=== PATIENT | male | born 1985 | race Caucasian/White ===

== ENCOUNTER 2018-10-11 10:52 | Emergency (ER) | payer SELFPAY ==
[~2018-10-11 10:52] MED LIST: LOR5/325 PO
--- NOTE | 2018-10-11 11:04 | ER Report ---
History and Physical Time Seen By MD: 11:04 Hx. of Stated Complaint: Pt. is dizzy and having right sided facial numbness and tingling. Onset 30 minutes prior to arrival. Pt. states he sneezed twice, and then symptoms started. Bilateral arm strength equal, no facial droop. Pt. had recent right menisus repair on 09/12, non-weightbearing on right leg. HPI/ROS CHIEF COMPLAINT: Numbness to right side HISTORY OF PRESENT ILLNESS: 31-year-old male patient presents to emergency room with complaint of numbness to the right side. Patient states this been going on for approximately 30 minutes time of arrival. Patient states that he was at work, working as a electronic bench technician at [employer], when the symptoms started suddenly. Patient states that he had meniscus repair in the right knee on September 12. Patient denies any fevers or chills. Patient states that he did become nauseated once he arrived here to the emergency room. Patient states he has not taken any medication for this. He denies any fevers, chills, diarrhea. REVIEW OF SYSTEMS: Respiratory: No cough, no dyspnea. Cardiovascular: No chest pain, no palpitations. Gastrointestinal: As noted above Musculoskeletal: No back pain. Allergies: Coded Allergies: No Known Drug Allergies (Verified , 10/11/18) Home Meds Active Scripts Lorazepam (ATIVAN) 0.5 Mg Tablet, 0.5 MG PO Q4-6H PRN for ANXIETY, #12 TAB Prov:MANUEL SMITH JAMIN 10/11/18 Reported Medications Trazodone Hcl (TRAZODONE HCL) 50 Mg Tablet 10/11/18 Sertraline Hcl (SERTRALINE HCL) 50 Mg Tablet 10/11/18 Hydroxyzine Pamoate (HYDROXYZINE PAMOATE) 25 Mg Capsule 10/11/18 Acetaminophen/Hydrocodone (Lortab 5/325 Mg) 5 Mg/325 Mg Tab, 1 - 2 EA PO Q4-6H, 0 Refills 08/02/08 [None] No Conflict Check, 0 Refills 08/02/08 Past Medical/Surgical History Patient has past medical history of depression, anxiety. Patient has surgical history of recent meniscus surgery on the right knee. Reviewed Nurses Notes: Yes Constitutional Vital Sign - Last 24 Hours 10/11/18 10/11/18 10/11/18 10/11/18 10:53 10:53 10:57 11:00 Temp 98.3 Pulse 64 77 Resp 16 0 B/P (MAP) 116/68 (84) 116/68 104/73 (83) Pulse Ox 93 89 O2 Delivery Room Air 10/11/18 10/11/18 10/11/18 10/11/18 11:02 11:07 11:12 11:17 Pulse 59 67 62 66 Resp 15 22 13 7 10/11/18 10/11/18 10/11/18 10/11/18 11:22 11:42 11:47 11:52 Pulse 60 ??? 85 66 Resp 13 36 17 Pulse Ox 96 97 98 10/11/18 10/11/18 10/11/18 10/11/18 11:57 12:00 12:02 12:07 Pulse 74 63 67 Resp 14 15 17 B/P (MAP) 95/81 (86) Pulse Ox 97 96 92 10/11/18 10/11/18 10/11/18 10/11/18 12:12 12:17 12:22 12:27 Pulse 70 66 67 63 Resp 9 19 13 16 Pulse Ox 98 97 95 98 10/11/18 10/11/18 10/11/18 10/11/18 12:30 12:32 12:37 12:42 Pulse 64 69 74 Resp 10 13 11 B/P (MAP) 108/70 (83) Pulse Ox 100 100 98 10/11/18 10/11/18 10/11/18 10/11/18 12:47 12:52 12:57 13:00 Pulse ??? 71 74 Resp 16 12 B/P (MAP) 105/68 (80) 104/66 (79) Pulse Ox 99 100 10/11/18 10/11/18 10/11/18 10/11/18 13:02 13:07 13:12 13:17 Pulse 76 71 68 70 Resp 14 10 16 12 Pulse Ox 100 100 100 92 10/11/18 10/11/18 10/11/18 10/11/18 13:22 13:27 13:30 13:32 Pulse 82 74 80 Resp 16 12 9 B/P (MAP) 96/63 (74) Pulse Ox 99 98 90 10/11/18 10/11/18 10/11/18 10/11/18 13:37 13:42 13:47 13:52 Pulse 80 71 66 64 Resp 13 14 18 29 Pulse Ox 100 100 99 99 10/11/18 10/11/18 10/11/18 10/11/18 13:57 14:00 14:02 14:07 Pulse 75 76 82 Resp 15 17 18 B/P (MAP) 101/68 (79) Pulse Ox 98 99 98 10/11/18 10/11/18 10/11/18 10/11/18 14:12 14:17 14:22 14:27 Pulse 75 78 83 87 Resp 19 17 12 12 Pulse Ox 99 99 99 100 10/11/18 10/11/18 10/11/18 14:30 14:32 14:37 Pulse 78 76 Resp 19 9 B/P (MAP) 108/72 (84) Pulse Ox 98 97 Physical Exam General Appearance: The patient is alert, has no immediate need for airway protection and no current signs of toxicity. Patient is diaphoretic. Respiratory: Chest is non tender, lungs are clear to auscultation. Cardiac: regular rate and rhythm Gastrointestinal: Abdomen is soft and non tender, no masses, bowel sounds normal. Musculoskeletal: Neck: Neck is supple and non tender. Patient has sharp sensation. Extremities have full range of motion and are non tender. Skin: No rashes or lesions. DIFFERENTIAL DIAGNOSIS: After history and physical exam differential diagnosis was considered for blood clot, anxiety, stroke, CT. Medical Decision Making Data Points Result Diagram: 10/11/18 1059 10/11/18 1059 Laboratory Hematology Test 10/11/18 10:59 10/11/18 12:46 10/11/18 14:17 Red Blood Count 5.35 M/uL (4.00-5.60) Mean Corpuscular Volume 95.0 fL (80.0-96.0) Mean Corpuscular Hemoglobin 32.7 pg (26.0-33.0) Mean Corpuscular Hemoglobin Concent 34.5 g/dL (32.0-36.0) Red Cell Distribution Width 12.9 % (11.5-14.5) Mean Platelet Volume 7.2 fL (7.2-11.1) Neutrophils (%) (Auto) 63.9 % (39.4-72.5) Lymphocytes (%) (Auto) 27.5 % (17.6-49.6) Monocytes (%) (Auto) 7.8 % (4.1-12.4) Eosinophils (%) (Auto) 0.2 % (0.4-6.7) Basophils (%) (Auto) 0.6 % (0.3-1.4) Nucleated RBC Relative Count (auto) 0.0 /100WBC Neutrophils # (Auto) 3.9 K/uL (2.0-7.4) Lymphocytes # (Auto) 1.7 K/uL (1.3-3.6) Monocytes # (Auto) 0.5 K/uL (0.3-1.0) Eosinophils # (Auto) 0.0 K/uL (0.0-0.5) Basophils # (Auto) 0.0 K/uL (0.0-0.1) Nucleated RBC Absolute Count (auto) 0.00 K/uL D-Dimer Quantitative (PE/DVT) 0.68 ug/ml (0-0.50) Sodium Level 137 mmol/L (137-145) Potassium Level 4.1 mmol/L (3.5-5.0) Chloride Level 102 mmol/L (98-107) Carbon Dioxide Level 25 mmol/L (22-30) Blood Urea Nitrogen 18 mg/dl (9-21) Creatinine 1.00 mg/dl (0.66-1.25) Glomerular Filtration Rate Calc > 60.0 Random Glucose 107 mg/dl (75-110) Calcium Level 9.5 mg/dl (8.4-10.2) Total Bilirubin 1.0 mg/dl (0.2-1.3) Aspartate Amino Transf (AST/SGOT) 22 U/L (0-35) Alanine Aminotransferase (ALT/SGPT) 23 U/L (0-56) Alkaline Phosphatase 64 U/L (0-126) Total Protein 8.0 g/dl (6.3-8.2) Albumin 4.8 g/dl (3.5-5.0) Urine Color Yellow Urine Clarity Clear Urine pH 7.0 pH (4.8-9.5) Urine Specific Brick >1.060 Urine Protein Negative mg/dL (NEGATIVE) Urine Glucose (UA) Negative mg/dL (NEGATIVE) Urine Ketones Trace mg/dL (NEGATIVE) Urine Blood Negative (NEGATIVE) Urine Nitrite Negative (NEGATIVE) Urine Bilirubin Negative (NEGATIVE) Urine Urobilinogen Negative mg/dL (0.2-1.9) Urine Leukocyte Esterase Negative (NEGATIVE) Urine RBC 1 /HPF (0-2/HPF) Urine WBC <1 /HPF (0-5/HPF) Urine Squamous Epithelial Cells None /LPF (</=FEW) Urine Bacteria Negative /HPF (NONE-FEW) Urine Mucus None /HPF (NONE-FEW) Urine Opiates Screen Negative Urine Barbiturates Screen Negative Ur Tricyclic Antidepressants Screen Negative Urine Phencyclidine Screen Negative Urine Amphetamines Screen Negative Urine Benzodiazepines Screen Negative Urine Cocaine Screen Negative Urine Cannabinoids Screen Negative Troponin I < 0.012 ng/ml Chemistry Test 10/11/18 10:59 10/11/18 12:46 10/11/18 14:17 White Blood Count 6.1 k/uL (4.5-11.0) Red Blood Count 5.35 M/uL (4.00-5.60) Hemoglobin 17.5 g/dL (14.0-18.0) Hematocrit 50.9 % (42.0-52.0) Mean Corpuscular Volume 95.0 fL (80.0-96.0) Mean Corpuscular Hemoglobin 32.7 pg (26.0-33.0) Mean Corpuscular Hemoglobin Concent 34.5 g/dL (32.0-36.0) Red Cell Distribution Width 12.9 % (11.5-14.5) Platelet Count 263 K/uL (150-450) Mean Platelet Volume 7.2 fL (7.2-11.1) Neutrophils (%) (Auto) 63.9 % (39.4-72.5) Lymphocytes (%) (Auto) 27.5 % (17.6-49.6) Monocytes (%) (Auto) 7.8 % (4.1-12.4) Eosinophils (%) (Auto) 0.2 % (0.4-6.7) Basophils (%) (Auto) 0.6 % (0.3-1.4) Nucleated RBC Relative Count (auto) 0.0 /100WBC Neutrophils # (Auto) 3.9 K/uL (2.0-7.4) Lymphocytes # (Auto) 1.7 K/uL (1.3-3.6) Monocytes # (Auto) 0.5 K/uL (0.3-1.0) Eosinophils # (Auto) 0.0 K/uL (0.0-0.5) Basophils # (Auto) 0.0 K/uL (0.0-0.1) Nucleated RBC Absolute Count (auto) 0.00 K/uL D-Dimer Quantitative (PE/DVT) 0.68 ug/ml (0-0.50) Glomerular Filtration Rate Calc > 60.0 Calcium Level 9.5 mg/dl (8.4-10.2) Total Bilirubin 1.0 mg/dl (0.2-1.3) Aspartate Amino Transf (AST/SGOT) 22 U/L (0-35) Alanine Aminotransferase (ALT/SGPT) 23 U/L (0-56) Alkaline Phosphatase 64 U/L (0-126) Total Protein 8.0 g/dl (6.3-8.2) Albumin 4.8 g/dl (3.5-5.0) Urine Color Yellow Urine Clarity Clear Urine pH 7.0 pH (4.8-9.5) Urine Specific Brick >1.060 Urine Protein Negative mg/dL (NEGATIVE) Urine Glucose (UA) Negative mg/dL (NEGATIVE) Urine Ketones Trace mg/dL (NEGATIVE) Urine Blood Negative (NEGATIVE) Urine Nitrite Negative (NEGATIVE) Urine Bilirubin Negative (NEGATIVE) Urine Urobilinogen Negative mg/dL (0.2-1.9) Urine Leukocyte Esterase Negative (NEGATIVE) Urine RBC 1 /HPF (0-2/HPF) Urine WBC <1 /HPF (0-5/HPF) Urine Squamous Epithelial Cells None /LPF (</=FEW) Urine Bacteria Negative /HPF (NONE-FEW) Urine Mucus None /HPF (NONE-FEW) Urine Opiates Screen Negative Urine Barbiturates Screen Negative Ur Tricyclic Antidepressants Screen Negative Urine Phencyclidine Screen Negative Urine Amphetamines Screen Negative Urine Benzodiazepines Screen Negative Urine Cocaine Screen Negative Urine Cannabinoids Screen Negative Troponin I < 0.012 ng/ml Coagulation Test 10/11/18 10:59 D-Dimer Quantitative (PE/DVT) 0.68 ug/ml Toxicology Test 10/11/18 12:46 Urine Opiates Screen Negative Urine Barbiturates Screen Negative Ur Tricyclic Antidepressants Screen Negative Urine Phencyclidine Screen Negative Urine Amphetamines Screen Negative Urine Benzodiazepines Screen Negative Urine Cocaine Screen Negative Urine Cannabinoids Screen Negative Urinalysis Test 10/11/18 12:46 Urine Color Yellow Urine Clarity Clear Urine pH 7.0 pH (4.8-9.5) Urine Specific Brick >1.060 Urine Protein Negative mg/dL (NEGATIVE) Urine Glucose (UA) Negative mg/dL (NEGATIVE) Urine Ketones Trace mg/dL (NEGATIVE) Urine Blood Negative (NEGATIVE) Urine Nitrite Negative (NEGATIVE) Urine Bilirubin Negative (NEGATIVE) Urine Urobilinogen Negative mg/dL (0.2-1.9) Urine Leukocyte Esterase Negative (NEGATIVE) Urine RBC 1 /HPF (0-2/HPF) Urine WBC <1 /HPF (0-5/HPF) Urine Squamous Epithelial Cells None /LPF (</=FEW) Urine Bacteria Negative /HPF (NONE-FEW) Urine Mucus None /HPF (NONE-FEW) EKG/Imaging Imaging EXAMINATION: CTA Chest With Contrast 10/11/2018 11:36 AM HISTORY: elevate d-dimer TECHNIQUE: Pulmonary embolus protocol - Thin-slice axial imaging of the chest was performed during maximal pulmonary arterial opacification with intravenous nonionic iodinated contrast. 3D slab MIPs and 2D reconstructions in the coronal and sagittal planes were performed. [employer] images have been stored on PACS. Contrast: 75 mL of IV Isovue 370. One of the following dose optimization techniques was utilized in the performance of this exam: Automated exposure control; adjustment of the mA and/or kV according to the patient's size; or use of an iterative reconstruction technique. Specific details can be referenced in the facility's radiology CT exam operational policy. COMPARISON STUDIES: Separate CT head and cervical spine today. Chest x-ray 05/07/2003. FINDINGS: Angiographic Findings: Pulmonary arteries: There are no filling defects in the main, right, left, lobar, segmental or visualized sub-segmental branches of the pulmonary arterial system Other vasculature: negative Additional non-angiographic findings: Lungs / pleura: negative Mediastinum / lydia: negative Heart / pericardium: negative Musculoskeletal / Body wall: Stable mild levoscoliotic curvature. Lymph node assessment: negative Lower neck: negative Upper abdomen: negative IMPRESSION: Negative CTA evaluation for PE. No significant acute finding. Report Dictated By: Dylan Garcia MD at 10/11/2018 12:14 PM Report E-Signed By: Dylan Garcia MD at 10/11/2018 12:20 PM EXAMINATION: CT Cervical Spine Without Contrast 10/11/2018 11:33 AM HISTORY: numbness COMPARISON STUDIES: Separate CT head and CTA chest for PE today. TECHNIQUE: Axial images were obtained from the skull base through the upper thoracic spine without IV contrast administration. Coronal and sagittal reformatted images were obtained from the axial source data. One of the following dose optimization techniques was utilized in the performance of this exam: Automated exposure control; adjustment of the mA and/or kV according to the patient's size; or use of an iterative reconstruction technique. Specific details can be referenced in the facility's radiology CT exam operational policy. FINDINGS: Pre-vertebral soft tissues: negative Alignment: negative Vertebral bodies: negative Posterior elements: negative Disc Spaces: Mild disc loss and spurring from C3-4 downward. Visualized soft tissues anterior neck: negative Visualized lung / mediastinum: negative IMPRESSION: No acute bony injury of the cervical spine. Mild multilevel cervical spondylosis. Report Dictated By: Dylan Garcia MD at 10/11/2018 12:11 PM Report E-Signed By: Dylan Garcia MD at 10/11/2018 12:20 PM EXAMINATION: CT Head Without Contrast 10/11/2018 11:11 AM HISTORY: numbness ot the right side TECHNIQUE: Contiguous axial images were obtained from the skull base to the vertex without intravenous contrast. One of the following dose optimization techniques was utilized in the performan ce of this exam: Automated exposure control; adjustment of the mA and/or kV according to the patient's size; or use of an iterative reconstruction technique. Specific details can be referenced in the facility's radiology CT exam operational policy. COMPARISON STUDIES: Separate CT cervical spine and CTA chest for PE today. FINDINGS: Ventricles / sulci / fissures: negative Masses / hemorrhage / midline shift: negative White matter: negative Carbone-white differentiation: negative Extra-axial spaces: negative Dural venous sinuses / arterial structures: negative Skull base / calvarium: negative Visualized mastoid air cells / paranasal sinuses: negative IMPRESSION: Normal head CT. No evidence of mass, acute ischemia or hemorrhage. Report Dictated By: Dylan Garcia MD at 10/11/2018 12:09 PM Report E-Signed By: Dylan Garcia MD at 10/11/2018 12:20 PM ED Course/Re-evaluation ED Course Patient was admitted to an exam room, history and physical were obtained. Differential diagnoses were considered. On examination patient was diaphoretic, he was pale, he was shaking. Patient had normal vital signs, lungs are clear, heart was regular, abdomen was soft and nontender. With the numbness to the right side a CT scan of the head was done. The results were negative. On my initial evaluation patient had decreased sensation to light touch and was able to feel pinprick. Patient was complaining of significant amount of pain to the neck and a CT scan of the neck was done. Pulses results were also negative. While he was there we get the results on his d-dimer which was elevated. We did go ahead and do the CT pulmonary angiogram. That was also negative. Patient got back and is still very anxious. We did give him 0.5 mg of Ativan. He states he felt significantly better. States the numbness and tingling had gone away completely. Patient states he is currently taking medication for anxiety, Zoloft and hydroxyzine. Patient had lab work which was also unremarkable except for the elevated d-dimer. Initial troponin was negative. EKG showed a normal sinus rhythm with a ventricular rate of 65 bpm. We did offer to monitor him for 3 hours from the time he arrived. A repeat troponin was done at that time. He was also negative. Patient had equal strength and all extremities. He had no numbness and tingling on discharge. With the negative radiological studies and negative laboratory studies we'll go ahead and discharge him home. I feel that e specially appropriate as he has improvement in his symptoms. We will go ahead and prescribe him Ativan. He is follow-up with his primary care provider in the next week. Patient verbalized understanding and agreement with plan. Decision to Disposition Date: Oct 11, 2018 Decision to Disposition Time: 14:59 Depart Departure Latest Vital Signs Vital Signs Date Time Temp Pulse Resp B/P (MAP) Pulse Ox O2 Delivery O2 Flow Rate FiO2 10/11/18 14:37 76 9 97 10/11/18 14:30 108/72 (84) 10/11/18 10:53 98.3 Room Air Impression: Primary Impression: Anxiety Condition: Improved Disposition: HOME OR SELF-CARE New Scripts Lorazepam (ATIVAN) 0.5 Mg Tablet 0.5 MG PO Q4-6H PRN for ANXIETY, #12 TAB Prov: MANUEL SMITH 10/11/18 Patient Instructions: Anxiety (ED) Additional Instructions: Get plenty of rest. Increase fluid intake. Make sure that you are sitting down at different times when you are at work. Continue with your normal medications. Return to the ER if you are having any recurrence of symptoms. Follow up with a primary care provider in the next 1-2 weeks. MANUEL SMITH Oct 11, 2018 11:04
[2018-10-11] MEDS ORDERED: TRAZ50TA34 (11:07)
[2018-10-11] MEDS ORDERED: SERT-184 (11:07)
[2018-10-11] MEDS ORDERED: HYDR25CA13 (11:07)
[2018-10-11] MEDS ORDERED: NS(*) 0.9% 1000 ML BAG 1,000 ML IV ONE (11:11)
[2018-10-11] MEDS ORDERED: ONDANSETRON 4 MG/2 ML VIAL IVP ONE (11:15)
[2018-10-11] MEDS ORDERED: ASPIRIN 81 MG CHEW PO ONE (11:15)
--- NOTE | 2018-10-11 11:19 | EKG ---
FACILITY: [facility] - [place] PATIENT NAME: HUEY ALMENDAREZ : [id number] MR: [id number] V: [id number] EXAM DATE: ORDERING PHYSICIAN: MANUEL SMITH TECHNOLOGIST: Test Reason : Blood Pressure : / mmHG Vent. Rate : 065 BPM Atrial Rate : 065 BPM P-R Int : 140 ms QRS Dur : 090 ms QT Int : 396 ms P-R-T Axes : 061 079 065 degrees QTc Int : 411 ms Normal sinus rhythm Normal ECG No previous ECGs available Confirmed by Dominick Matson ([id number]) on 10/11/2018 7:38:20 PM Referred By: Confirmed By:Dominick Roman
[2018-10-11 11:21] LABS: PLATELET COUNT, AUTOMATED 263 K/uL (150-450)
[2018-10-11] MEDS ORDERED: NS(*) 0.9% 50 ML BAG 50 ML ONE ×2 (11:48→11:50)
[2018-10-11] MEDS ORDERED: IOPAMIDOL 76% 150 ML INFUS BTL 150 ML ONE (11:48)
[2018-10-11] MEDS ORDERED: LORazepam 2 MG/ML VIAL IVP ONE (12:15)
--- NOTE | 2018-10-11 12:23 | RADIOLOGY IMAGING REPORT ---
FACILITY: [facility] PATIENT NAME: Clay Brito : 1985 MR: [id number] V: [id number] EXAM DATE: [id number] ORDERING PHYSICIAN: MANUEL SMITH TECHNOLOGIST: Location: [facility] [place] Patient: Clay Brito : 1985 Visit/Account:[id number] Date of Sevice: 10/11/2018 EXAMINATION: CTA Chest With Contrast 10/11/2018 11:36 AM HISTORY: elevate d-dimer TECHNIQUE: Pulmonary embolus protocol - Thin-slice axial imaging of the chest was performed during maximal pulmonary arterial opacification with intravenous nonionic iodinated contrast. 3D slab MIPs a nd 2D reconstructions in the coronal and sagittal planes were performed. Synchronizer images have b een stored on PACS. Contrast: 75 mL of IV Isovue 370. One of the following dose optimization techniques was utilized in the performance of this exam: Autom ated exposure control; adjustment of the mA and/or kV according to the patient's size; or use of an i terative reconstruction technique. Specific details can be referenced in the facility's radiology C T exam operational policy. COMPARISON STUDIES: Separate CT head and cervical spine today. Chest x-ray 05/07/2003. FINDINGS: Angiographic Findings: Pulmonary arteries: There are no filling defects in the main, right, left, lobar, segmental or visual ized sub-segmental branches of the pulmonary arterial system Other vasculature: negative Additional non-angiographic findings: Lungs / pleura: negative Mediastinum / lydia: negative Heart / pericardium: negative Musculoskeletal / Body wall: Stable mild levoscoliotic curvature. Lymph node assessment: negative Lower neck: negative Upper abdomen: negative IMPRESSION: Negative CTA evaluation for PE. No significant acute finding. Report Dictated By: Dylan Garcia MD at 10/11/2018 12:14 PM Report E-Signed By: Dylan Garcia MD at 10/11/2018 12:20 PM WSN:[email or web address]
--- NOTE | 2018-10-11 12:24 | RADIOLOGY IMAGING REPORT ---
FACILITY: [facility] PATIENT NAME: Clay Brito : 1985 MR: [id number] V: [id number] EXAM DATE: [id number] ORDERING PHYSICIAN: MANUEL SMITH TECHNOLOGIST: Location: [facility] Patient: Clay Brito : 1985 Visit/Account:[id number] Date of Sevice: 10/11/2018 EXAMINATION: CT Cervical Spine Without Contrast 10/11/2018 11:33 AM HISTORY: numbness COMPARISON STUDIES: Separate CT head and CTA chest for PE today. TECHNIQUE: Axial images were obtained from the skull base through the upper thoracic spine without I V contrast administration. Coronal and sagittal reformatted images were obtained from the axial [facility] e data. One of the following dose optimization techniques was utilized in the performance of this exam: Autom ated exposure control; adjustment of the mA and/or kV according to the patient's size; or use of an i terative reconstruction technique. Specific details can be referenced in the facility's radiology C T exam operational policy. FINDINGS: Pre-vertebral soft tissues: negative Alignment: negative Vertebral bodies: negative Posterior elements: negative Disc Spaces: Mild disc loss and spurring from C3-4 downward. Visualized soft tissues anterior neck: negative Visualized lung / mediastinum: negative IMPRESSION: No acute bony injury of the cervical spine. Mild multilevel cervical spondylosis. Report Dictated By: Dylan Garcia MD at 10/11/2018 12:11 PM Report E-Signed By: Dylan Garcia MD at 10/11/2018 12:20 PM WSN:[email or web address]
--- NOTE | 2018-10-11 12:26 | RADIOLOGY IMAGING REPORT ---
FACILITY: [facility] [place] PATIENT NAME: Clay Brito : 1985 MR: [id number] V: [id number] EXAM DATE: ORDERING PHYSICIAN: MANUEL SMITH TECHNOLOGIST: Location: [facility] - [place] Patient: Clay Brito : 1985 Visit/Account:[id number] Date of Sevice: 10/11/2018 EXAMINATION: CT Head Without Contrast 10/11/2018 11:11 AM HISTORY: numbness ot the right side TECHNIQUE: Contiguous axial images were obtained from the skull base to the vertex without intraven ous contrast. One of the following dose optimization techniques was utilized in the performance of this exam: Autom ated exposure control; adjustment of the mA and/or kV according to the patient's size; or use of an i terative reconstruction technique. Specific details can be referenced in the facility's radiology C T exam operational policy. COMPARISON STUDIES: Separate CT cervical spine and CTA chest for PE today. FINDINGS: Ventricles / sulci / fissures: negative Masses / hemorrhage / midline shift: negative White matter: negative Carbone-white differentiation: negative Extra-axial spaces: negative Dural venous sinuses / arterial structures: negative Skull base / calvarium: negative Visualized mastoid air cells / paranasal sinuses: negative IMPRESSION: Normal head CT. No evidence of mass, acute ischemia or hemorrhage. Report Dictated By: Dylan Garcia MD at 10/11/2018 12:09 PM Report E-Signed By: Dylan Garcia MD at 10/11/2018 12:20 PM WSN:[email or web address]
[2018-10-11 14:30] VITALS: BP 108/72
[2018-10-11] MEDS ORDERED: LORA-1455 PO (15:02)
== END 2018-10-11 15:15 | disposition home or self-care (01) ==
LOC: ER 11:12
DX: F31.9 Bipolar disorder, unspecified (principal)
CPT/HCPCS: 70450; 71275; 72125; 80305; 81001; 84484; 85025; 85379; 93005; 96361; 96374; 96375; 99284; J2060; J2405; J7030; J7050; Q9967; 82040; 82247; 82310; 82374; 82435; 82565; 82947; 84075; 84132; 84155; 84295; 84450; 84460; 84520